=== PATIENT | male | born 1945 | race African-American/Black ===

== ENCOUNTER 2018-06-22 12:16 | Emergency (ER) | payer OTHER, MEDICAID ==
[~2018-06-22] VITALS: Ht 167.6 cm; Wt 75.0 kg
[2018-06-22] MEDS ORDERED: HYDROCODONE/ACETAMINOPHEN 5/325MG TABLET PO ONE (13:15)
[2018-06-22 13:18] VITALS: BP 143/94
== END 2018-06-22 13:40 | disposition home or self-care (01) ==
LOC: ER 12:16
DX: M54.5 Low back pain (principal); M54.30 Sciatica, unspecified side; I10 Essential (primary) hypertension
CPT/HCPCS: 99283